=== PATIENT | male | born 1995 | race Caucasian/White ===

== ENCOUNTER → 2023-04-07 | Outpatient (CLI) | payer OTHER | LOC: M PLAIMG 14:30 | PROVIDERS: ATTEND Otolaryngology | DX: J34.2 Deviated nasal septum (principal); D23.39 Other benign neoplasm of skin of other parts of face ==

== ENCOUNTER 2023-08-12 11:25 | Day surgery (SDC) | payer OTHER ==
[~2023-08-12] VITALS: Ht 182.9 cm; Wt 83.9 kg
[~2023-08-12 11:25] MED LIST: LR 1,000 ML IV SCH
[2023-08-12] MEDS ORDERED: SODIUM CHLORIDE 0.9% NASAL GEL 15GM (AYR) As Ordered ONE (12:46)
[2023-08-12] MEDS ORDERED: propofoL 200 MG/20 ML VIAL As Ordered ONE (12:50)
[2023-08-12] MEDS ORDERED: LIDOCAINE 2% 100MG/5ML SDV (FOR ANES.) As Ordered ONE (12:50)
[2023-08-12] MEDS ORDERED: ROCURONIUM BROMIDE 50MG/5ML VIAL As Ordered ONE (12:50)
[2023-08-12] MEDS ORDERED: SUGAMMADEX SODIUM 500 MG/5 ML VIAL (BRIDION) As Ordered ONE (12:50)
[2023-08-12] MEDS ORDERED: MIDAZOLAM INJ 2MG/2ML VIAL As Ordered ONE (12:51)
[2023-08-12] MEDS ORDERED: ONDANSETRON 4MG 2ML VIAL As Ordered ONE (12:52)
[2023-08-12] MEDS ORDERED: fentaNYL 100 MCG/2 ML INJECTION As Ordered ONE (12:52)
[2023-08-12] MEDS: EPINEPHrine 1MG/ML INJ 30ML MD-VIAL As Ordered ONE (13:31)
[2023-08-12] MEDS: METHYLENE BLUE 0.5% (5MG/ML) 10 ML AMP (PROVAYBLUE) As Ordered ONE (13:32)
[2023-08-12] MEDS: LIDOCAINE W/EPINEPHRINE 1% 20ML VIAL As Ordered ONE (13:37)
[2023-08-12] MEDS ORDERED: fentaNYL 100 MCG/2 ML INJECTION IV PRN (14:35)
[2023-08-12] MEDS ORDERED: MORPHINE 2 MG/ML 1ML VIAL IV PRN (14:35)
[2023-08-12] MEDS: ONDANSETRON 4MG 2ML VIAL IV PRN (15:09)
[2023-08-12] MEDS: oxyCODONE 5MG TAB PO PRN (15:09)
[2023-08-12 15:30] VITALS: BP 113/76; TEMP 97.1; O2SAT 98
[2023-08-12] MEDS: DOXYCYCLINE HYCLATE 100MG TABLET PO ONE (15:50)
== END 2023-08-12 15:59 | disposition home or self-care (01) ==
LOC: M SDC 11:25
PROVIDERS: ATTEND Otolaryngology
DX: J34.2 Deviated nasal septum (principal); Z88.0 Allergy status to penicillin; F17.220 Nicotine dependence, chewing tobacco, uncomplicated
CPT/HCPCS: 30520; 88300; J0171; J1100; J2250; J2405; J3010; Q9968